=== PATIENT | male | born 1960 | race Caucasian/White ===

== ENCOUNTER 2021-03-13 08:49 | Day surgery (SDC) | payer OTHER ==
[2021-03-13] VITALS (10 sets, daily range): BP systolic 135–197; BP diastolic 75–111; PULSE 60–81; TEMP 97.9–98.3
[~2021-03-13] VITALS: Ht 177.8 cm; Wt 76.3 kg
[2021-03-13] MEDS ORDERED: ASPIRIN E.C. 8181 MG PO (09:18)
[2021-03-13] MEDS ORDERED: ZOLOFT 100MG100 MG PO (09:20)
[2021-03-13] MEDS ORDERED: IBU800 M1 PO (09:21)
[2021-03-13] MEDS ORDERED: PRINIVIL10 MG PO (09:23)
[2021-03-13] MEDS ORDERED: DEPAKOTE 250MG250 MG PO (09:24)
[2021-03-13] MEDS ORDERED: PRILOTC (09:25)
[2021-03-13] MEDS ORDERED: ULTRAM 50MG TAB50 MG PO (09:26)
--- NOTE | 2021-03-13 10:35 | NUR ---
PATIENT BROUGHT BACK TO BAY 4, AMBULATED WITHOUT DIFFICULTY. PLACED ON MONITOR. BLOOD PRESSURE ELEVATED. PATIENT IS DRY HEAVING INTO BUCKET. STATES THAT THIS IS TYPICAL FOR HIM. HE OFTEN HAS ALOT OF NASUEA AND DOES NOT TOLERATE ANESTESIA WELL. WARM BLANKET PROVIDED. AT BEDSIDE TO DRIVE PATIENT HOME. REPORT RECIEVED FROM CASIMIRO EMMANUEL. WILL CONTINUE TO MONITOR.
--- NOTE | 2021-03-13 10:50 | NUR ---
PATIENT CONTINUES TO HAVE NAUSEA AND DRY HEAVING. SOURAV ALMANZA MADE AWARE. ORDERS FOR PHENERGAN 12.5MG IV NOW GIVEN. WILL ADMISTER PER ORDERS.
--- NOTE | 2021-03-13 11:09 | NUR ---
PATIENT ADMITTED INTO ENDO UNIT ACCOMPANIED BY . AMBULATING WITH STEADY GAIT. CONSENT EXPLAINED AND PATIENT SIGNED. ASSESSMENT COMPLETED. PATIENT USES MARJUANA ON A DAILY BASIS. PATIENT STATES HAS HAD SEIZURE A MONTH AGO. LUNGS CTA. HEART SOUNDS S1S2 AND REGULAR. BOWEL SOUNDS HEARD. PEDAL PULSES+2. CALL LIGHT EXPLAINED.
--- NOTE | 2021-03-13 11:15 | NUR ---
PATIENT CONTINUES TO HAVE HIGH BLOOD PRESSURE. DRY HEAVING HAS STOPPED AT THIS TIME. PATIENT STATES HE WOULD LIKE TO TRY SOME WATER AND MUFFIN.
--- NOTE | 2021-03-13 11:30 | NUR ---
PATIENT DID NOT TOLERATE MUFFIN AND WATER. VOMITING INTO BUCKET AT THIS TIME. BLOOD PRESSURE REMAINS ELEVATED, ESPECIALLY WHILE HEAVING.
--- NOTE | 2021-03-13 11:45 | NUR ---
MADE MD AND COMMERCIAL ILLUSTRATOR AWARE OF CONTINUED INCREASED PRESSURE. VERBAL ORDER FOR HYDRALIZINE 10MG IV GIVEN. WILL ADMINISTER PER ORDERS.
--- NOTE | 2021-03-13 12:45 | NUR ---
DR. GOTTI MADE AWARE OF PATIENT STATUS. WILL DISCUSS WITH DAY LIGHT RELIEF OPERATOR ABOUT HOW TO PROCEED. PATIENT IS NOW STICKING FINGERS DOWN HIS THROAT AND VOMMITING. BLOOD PRESSURES REMAIN ELEVATED.
--- NOTE | 2021-03-13 13:15 | NUR ---
PATIENT STATES HE IS FEELING BETTER, CONTINUES TO STICK FINGERS DOWN THROAT. NO IMPROVEMENT TO BLOOD PRESSURE. CHIEF OF STAFF DOCTOR MADE AWARE. WILL SPEAK AND CHECK IN WITH PATIENT.
--- NOTE | 2021-03-13 13:20 | NUR ---
PER ARCHIE BENJAMIN PATIENT MAY BE DISCHARGED HOME. REVIEWED IN DEPTH ON WHEN PATIENT NEEDS TO COME BACK IN AND BE SEEN IN ER. DR. GOTTI IN AGREEMENT. AT BEDSIDE TO SPEAK WITH PATIENT IN . IV REMOVED. PATIENT TO GET DRESSED.
--- NOTE | 2021-03-13 13:30 | NUR ---
PATIENT BROUGHT DOWN TO LOBBY VIA WHEEL CHAIR. TO BE DRIVEN HOME BY .
== END 2021-03-13 13:30 | disposition home or self-care (01) ==
LOC: SDCO 08:49
DX: D12.2 Benign neoplasm of ascending colon (principal); K63.5 Polyp of colon; K58.9 Irritable bowel syndrome, unspecified; R19.4 Change in bowel habit; R19.7 Diarrhea, unspecified; K64.1 Second degree hemorrhoids; K21.9 Gastro-esophageal reflux disease without esophagitis; R56.9 Unspecified convulsions; I10 Essential (primary) hypertension; F32.9 Major depressive disorder, single episode, unspecified; F41.9 Anxiety disorder, unspecified; F43.10 Post-traumatic stress disorder, unspecified; Z87.820 Personal history of traumatic brain injury; Z20.822 Contact with and (suspected) exposure to COVID-19; Z79.82 Long term (current) use of aspirin; Z79.899 Other long term (current) drug therapy; Z79.891 Long term (current) use of opiate analgesic
CPT/HCPCS: J0360; J1790; J2550; J7120